=== PATIENT | male | born 1960 | race African-American/Black ===

== ENCOUNTER 2017-06-25 17:33 | Emergency (ER) | payer SELFPAY ==
[~2017-06-25] VITALS: Ht 165.1 cm; Wt 118.2 kg
[2017-06-25 17:36] VITALS: TEMP 100
[2017-06-25 18:16] LABS: BASO # 0.1 (0.0-0.2); BASO % 0.9 % (0.0-2.0); EOS # 0.3 (0.0-0.7); EOS % 4.3 % (0-4.0); GRAN # 4.2 (1.4-6.5); GRAN % 55.1 % (42.2-75.2); HEMATOCRIT 44.9 % (42.0-52.0); HEMOGLOBIN 14.8 g/dl (13.5-18.0); LYMPH # 1.9 (1.2-3.4); LYMPH % 24.7 % (20.0-51.0); MEAN CELL VOLUME 89 fl (80.0-100.0); MEAN CORPUSCULAR HEMOGLOBIN 29 pg (27.0-31.0); MEAN CORPUSCULAR HGB CONC 33 g/dl (33.0-37.0); MEAN PLATELET VOLUME 9.2 fl (7.4-10.4); MONO # 1.1 (0.1-0.6); MONO % 14.6 % (1.7-9.3); PLATELET COUNT 242 K/mm3 (130-400); RED BLOOD COUNT 5.07 M/mm3 (4.20-5.60); WHITE BLOOD COUNT 7.6 K/mm3 (4.8-10.8)
[2017-06-25] MEDS ORDERED: PRINZIDE 12.5 M1 TA1 PO (18:24)
[2017-06-25] MEDS ORDERED: K-DUR 10 MEQ T10 MEQ PO (18:25)
[2017-06-25] MEDS ORDERED: CATAPRES 0.1MG0.1 MG PO (18:25)
[2017-06-25] MEDS ORDERED: ASPIRIN 81M81 MG/TA2 PO (18:26)
[2017-06-25 18:27] LABS: ADJUSTED CALCIUM 9.5 mg/dL (8.4-10.2); ALBUMIN 4.1 gm/dL (3.5-5.0); BILIRUBIN,TOTAL 0.5 mg/dL (0.0-1.0); CALCIUM 9.6 mg/dL (8.4-10.2); CREATININE, serum 1.11 mg/dL (0.66-1.25); POTASSIUM 4.2 mmol/L (3.4-5.0); TOTAL PROTEIN 8.4 gm/dL (6.4-8.2)
[2017-06-25 18:58] LABS: INFLUENZA A NEGATIVE; INFLUENZA B NEGATIVE
[2017-06-25] MEDS ORDERED: AMOXICILLIN 8751 TAB PO (19:17)
[2017-06-25] MEDS ORDERED: CHERATUSSIN AC120 ML PO (19:23)
[2017-06-25 20:05] VITALS: BP 144/87; PULSE 97
== END 2017-06-25 20:13 | disposition home or self-care (01) ==
LOC: COL.ER 17:33
PROVIDERS: Family Medicine
DX: J18.1 Lobar pneumonia, unspecified organism (principal); I10 Essential (primary) hypertension; Z79.82 Long term (current) use of aspirin
CPT/HCPCS: J0696; J7030